=== PATIENT | female | born 1965 | race Caucasian/White ===

== ENCOUNTER 2017-11-08 13:50 | Emergency (ER) | payer OTHER ==
[~2017-11-08] VITALS: Ht 154.9 cm; Wt 126.5 kg
[~2017-11-08 13:50] MED LIST: ALBU90OI INH; ASPI325 PO; AZIT250 PO; BENZ100A PO; CEPH500 PO; CLIN300 PO; CLOT1TC TOP; FLUC150A PO; FURO100EL PO; FURO20 PO; FURO40; HYDMOR2 PO; IBUHYD PO; LISI5 PO; Lasix20 MG PO; NYST100P TOP; OLME20; OTC PAIN MEDS; OXYC5 PO; POTCHL10ER PO; RXHYDMOR2 PO; Roxicodone5 MG PO; SILSUL1TC TOP; TRAM50 PO; Ultram50 MG PO
[2017-11-08] MEDS ORDERED: Keflex500 MG PO (15:00)
== END 2017-11-08 15:24 | disposition home or self-care (01) ==
LOC: ER 13:50
DX: K42.9 Umbilical hernia without obstruction or gangrene (principal); S30.811A Abrasion of abdominal wall, initial encounter; L08.9 Local infection of the skin and subcutaneous tissue, unspecified; I10 Essential (primary) hypertension; F17.210 Nicotine dependence, cigarettes, uncomplicated; Z88.0 Allergy status to penicillin; Z88.5 Allergy status to narcotic agent; Z91.048 Other nonmedicinal substance allergy status; Z88.6 Allergy status to analgesic agent; Z88.8 Allergy status to other drugs, medicaments and biological substances; X58.XXXA Exposure to other specified factors, initial encounter
CPT/HCPCS: 99283